=== PATIENT | male | born 1975 | race Caucasian/White ===

== ENCOUNTER 2017-02-03 06:50 | Inpatient (IN) | payer OTHER ==
--- NOTE | ~2017-02-03 | HP ---
Unit #: [id number] #: [id number] Patient: EDMUND KAYE [id number] [address] [place], [place] [address] [id number] MR#: [id number] NAME: EDMUND KAYE ROOM: [facility] Age: 41 Sex: M Admission Date: 02/03/2017 : 1975 Attending Physician: Mary Frederick M.D. Primary Care Physician: No Primary Care Physician HISTORY AND PHYSICAL CHIEF COMPLAINT Nausea, vomiting and abdominal pain. HISTORY OF PRESENT ILLNESS The patient is a 41-year-old male with a past medical history of diabetes, depression and polysubstance abuse. He presented to the emergency department for evaluation of the above. The patient state that he has not been feeling well since yesterday. He reports abdominal pain and vomiting. The abdominal pain is in the upper abdomen. He describes it as "burning." It has been fairly constant in nature. It is exacerbated by eating. There are no alleviating factors. He denies any similar pain. He has also had vomiting. He states that he has had about five bouts of nonbloody emesis within the past 24 hours. He denies any diarrhea. No urinary symptoms. No fever. No cough or cold symptoms. He has had general weakness. In the emergency department, initial pulse was 126, blood pressure 121/83, oxygen saturation 100% on room air. Laboratory notable for glucose of 375, CO2 was 7, anion gap is 24, pH is 7.040. He was given 3 liters of normal saline in the emergency department, as well as 7 units of regular insulin and started on insulin drip. He also received 2 mg of morphine. He is being admitted to [facility] for evaluation and further treatment. PAST MEDICAL HISTORY 1. The patient denies any hospitalizations as an adult. 2. Diabetes diagnosed about five months ago. 3. Depression. PAST SURGICAL HISTORY None. SOCIAL HISTORY The patient lives with his . He denies tobacco use. He reports occasional alcohol use. He also reports occasional methamphetamine capsule use as well as cocaine. He denies IV drug use. He is currently unemployed. FAMILY HISTORY Notable for his mother having lung cancer. His dad has diabetes and heart problems. ALLERGIES Unit #: [id number] #: [id number] Patient: EDMUND KAYE No known drug allergies. CURRENT MEDICATIONS 1. Zoloft. 2. Glimepiride. 3. Janumet. 4. Invoking. Home medications will need to be reviewed and verified. REVIEW OF SYSTEMS A complete review of systems is negative except as indicated in the history of present illness. PHYSICAL EXAMINATION GENERAL: The patient is a male who is somewhat lethargic, but wakes to voice. VITALS: Temperature is 97.5, pulse 126, respiratory rate 21, blood pressure 121/83, oxygen saturation 100% on room air. HEENT: The head is atraumatic. Mucous membranes are dry. NECK: Supple. Trachea midline. LUNGS: Clear to auscultation bilaterally with no increased work of breathing. HEART: Regular rate and rhythm. ABDOMEN: Soft. He is mildly tender to palpitation throughout. Bowel sounds are present in all four quadrants. EXTREMITIES: Nontender with no pedal edema. NEUROLOGIC: The patient is awake. He is oriented times three. He follows commands. He is moving all extremities. PSYCHIATRIC: Mood and affect are normal. The patient is cooperative. SKIN: Skin of examined areas is warm and dry. DIAGNOSTIC STUDIES IMAGING: Chest x-ray shows no acute abnormality. LABORATORY: CBC notable for white blood cell count 18.9, hemoglobin 17, hematocrit 52.6. CMP notable for sodium 132 that corrects when glucose of 375 is accounted for. CO2 was 7. Anion gap 24. ALT 41, alkaline phosphatase 108, total bilirubin 2.4, amylase and lipase normal. Urinalysis notable for 2+ protein, greater than 1000 glucose, 3+ ketones, 1+ blood with 0-2 red blood cells. Arterial blood gas notable for pH 7.04, pCO2 15.3 on room air. Magnesium and phosphorus levels are 2 and 3.5 respectively. Beta hydroxybutyrate is 9.65. ASSESSMENT The patient is a 41-year-old male with 1. Diabetic ketoacidosis. The patient received 3 liters of normal saline as well as 7 units of regular insulin. He is currently on insulin drip. 2. Anion gap metabolic acidosis with an anion gap of 24. 3. Nausea and vomiting. 4. Leukocytosis without obvious source of infection. The patient is dehydrated. 5. Polysubstance abuse including methamphetamine and cocaine. PLAN 1. Admit to ICU. 2. Diabetic ketoacidosis protocol with insulin drip. Unit #: [id number] #: [id number] Patient: EDMUND KAYE 3. Blood cultures times two. 4. P.r.n. Zofran. 5. P.r.n. Toradol. 6. Urine tox screen. 7. steel manager, social work consult regarding polysubstance abuse. 8. SCDs for DVT prophylaxis. 9. Protonix for GI prophylaxis since the patient will be in the ICU. 10. Repeat labs as per diabetic ketoacidosis protocol and in the morning, including magnesium and phosphorus. 11. Additional workup and consultants based on the above. Thirty-one minutes critical care time spent in the care of this patient (11:15 to 11:46). Dictated by Eusebia Penaloza/ronnell TD: 02/03/2017 11:56 JOB #: [id number] HISTORY AND PHYSICAL Page 1 of 1 X Mary Frederick MD X HISTORY AND PHYSICAL
--- NOTE | ~2017-02-03 | A ---
[facility] DATE: 02/04/17 Patient: EDMUND KAYE Physician: MARIO Address: [address] [place] [address] Room/Bed: [address], Zip: [place] [address] Admit Date: 02/03/17 Date of : [birth year] Height: 5 10 Weight: 160 73 NUTRITIONAL ASSESSMENT: REASON: DKA DX 41 yo male admitted for n/v, abdominal pain, DKA PMH: Polysubstance and IV drug abuse, DM, depression Anthropometrics: Ht: 5'10" Wt: 73 kg BMI: 23.1 Labs: Na+ 133 K+ 3.1 Gluc 196 Ca++ 8.1 Phos 1.8 Accuchecks 129-341 HgbA1C 16.3 Meds: Fish oil, protonix, novolog, MgSO4, KCl, zofran I/O & Bowel function: 3249/1245, last BM 01/31 Skin Integrity: no breakdown or edema noted Diet: Consistent carbohydrate Assessment: Chart reviewed, events noted. 41 yo male admitted for n/v and abdominal pain, found to be in DKA. Pt has a h/o polysubstance abuse and DM. Insulin drip has been discontinued, and the is ordered a consistent carbohydrate diet. RN reports that the pt consumed 100% of his breakfast and asked for more food. RD spoke with the pt at bedside. Pt reports having a great appetite, and not follow a specific diet at home. Per note in shift assessment, the pt reportedly did not eat for three days GRAIN OILSEED OR PASTURE GROWER. RD provided basic DM diet education, encouraging compliance. Pt was somewhat interactive in the education; however, he did not demonstrate motivation to comply with instructed diet. RD provided printed materials and encouraged pt to contact RD with any questions. Dx: Impaired glycemic control RT poor compliance AEB DKA Dx, accuchecks 129-341. Intervention: 1. Consistent carbohydrate diet 2. RD provided diet education Monitoring, Evaluation and Goals: 1. Improve labs; glucose, electrolytes 2. GI; promote regular BMs Recommendations: 1. Pt to follow a consistent carbohydrate diet as instructed by RD. Pt would benefit from seeing an outpatient RD, or attending free classes at his local health department for [facility] DATE: 06/07/17 Patient: EDMUND KAYE Physician: MARIO Address: [address] [place] [address] Room/Bed: [address], Zip: [place] [address] Admit Date: 02/03/17 Date of : [birth year] Height: 5 10 Weight: 160 73 follow up/ accountability. 2. Optimize the pt's bowel regimen noting last BM 01/31. 3. Optimize the pt's insulin regimen and provide education prior to discharge. 4. Contact RD if pt desires additional diet education. Pt is at mild nutritional risk. RD will follow hospital course per protocol. Respectfully, REED MARTINEZ RD, LD [facility] cc: client file
--- NOTE | ~2017-02-03 | DS ---
Unit #: [id number] #: [id number] Patient: EDMUND KAYE [id number] [address] [place], [place] [address] [id number] I MR#: [id number] NAME: EDMUND KAYE ROOM: 219 Age: 41 Sex: M Admission Date: 02/03/2017 : 1975 Discharge Date: 02/05/2017 Attending Physician: oJrge Olivo M.D. Primary Care Physician: No Primary Care Physician DISCHARGE SUMMARY REASON FOR ADMISSION Nausea, vomiting, and abdominal pain. HISTORY OF PRESENT ILLNESS/HOSPITAL COURSE Patient is a 41-year-old male, underlying history of diabetes, depression, polysubstance abuse, who states that he only snorts and/or takes pills by mouth and does not use IV drugs, who presented secondary to nausea, vomiting as well as abdominal pain. His initial blood glucose was 375, CO2 was 70, anion gap was 24, and pH was 7.04. He was subsequently placed on DKA protocol, and transferred to the ICU for ongoing management. Initial urine tox screen was positive for amphetamines. Through ICU course and while in DK-protocol, anion gap was closed. Blood cultures came back negative this morning with the exception of decreased potassium of 2.7. His electrolytes are now normal. Gap is closed as mentioned above. His blood sugars are more stable. Previously, it was noted that he was only on oral medications for his diabetes with questionable compliance at best, but noted that his hemoglobin A1C this hospital admission was 16.3, and therefore, unlikely, that he was taking any of his medications at home. At time of discharge, he has been counselled extensively on diabetes, long-term and detrimental side effects. He will be discharged on both Levemir as well as NovoLog t.i.d. with meals modifications as listed below, will also have diabetic teaching prior to discharge. I have also asked [facility] to see him prior to discharge in regards to his drug-related issues. He adamantly denies any IV drugs, but he has very little insight into abusing other substances and in consideration of his poorly controlled diabetes at this point in time, his prognosis is poor, and this has been reinforced with patient. He states that he will follow up with his primary care physician. He will try to get his sugars better and he will seek help in regards to his drug/substance addiction problems. FINAL DISCHARGE DIAGNOSES 1. Diabetic ketoacidosis, now resolved. 2. Poorly controlled insulin-dependent diabetes. 3. Intractable nausea and vomiting, now resolved, likely secondary to diabetic ketoacidosis. 4. Polysubstance abuse. 5. Chronic neuropathy likely secondary to poorly controlled diabetes. Unit #: [id number] #: [id number] Patient: EDMUND KAYE 6. Depression. 7. Anxiety. FINAL DISCHARGE MEDICATIONS 1. Neurontin 600 mg p.o. q.8. 2. Zoloft 50 mg p.o. q.h.s. 3. NovoLog 5 units t.i.d. with meals. 4. Levemir flex-pen 20 units subcu q.a.m. 5. Metformin 500 mg p.o. b.i.d. 6. 20 mEq of K-Dur p.o. b.i.d. x5 days. DISCHARGE CONDITION Stable. DISCHARGE DISPOSITION Home. LONG-TERM PROGNOSIS Poor, as patient has poor insight into his disease process. Dictated by... Jorge Olivo M.D. VAISHALI/eduard TD: 02/05/2017 23:09 JOB #: [id number] DISCHARGE SUMMARY Page 1 of 1 X Jorge Olivo MD X DISCHARGE SUMMARY
--- NOTE | ~2017-02-03 | EKG ---
PATIENT: EDMUND KAYE UNIT #: [id number] Ventricular Rate: 104 BPM Atrial Rate: 104 BPM P-R Interval: 140 ms QRS Duration: 84 ms Q-T Interval: 384 ms QTC Calculation(Bezet): 504 ms P [place]: 70 degrees Calculated R [place]: 98 degrees Calculated T [place]: -2 degrees Diagnosis Line: Sinus tachycardia Diagnosis Line: Rightward axis Diagnosis Line: Abnormal QRS-T angle, consider primary T wave Diagnosis Line: abnormality Diagnosis Line: Abnormal ECG Diagnosis Line: No previous ECGs available Diagnosis Line: Confirmed by ABDIRIZAK HEMPHILL MD ([id number]) on Diagnosis Line: 02/03/2017 10:16:46 PM INTERPRETING MD: CATY
--- NOTE | ~2017-02-03 | FU ---
[facility] DATE: 02/05/17 Patient: EDMUND KAYE Physician: MARIO Address: [address] [place] [address] Room/Bed: [address] [place] [address], Zip: [place] [address] Admit Date: 02/03/17 Date of : 75 Height: 5 10 Weight: 160 73 NUTRITION MONITORING/FOLLOW-UP: Reason: CONSULT RE: DIET EDUCATION PT HAD NO DIET QUESTIONS/CONCERNS AT THIS TIME. PT HAD QUESTIONS REGARDING INSULIN REGIMEN, RD ADVISED PT TO COMMUNICATE W/MD AND RN. RD ASSESSED/EDUCATED PT ON 02/04/17. RD TO REMAIN AVAILABLE UPON REQUEST. PT TO D/C HOME TODAY. Respectfully, Surinder Pugh, DELL, LD [facility] cc: client file
--- NOTE | ~2017-02-03 | CR72 ---
[facility] A Service of [facility] & [facility] RADIOLOGY TEXT RESULTS PATIENT: EDMUND KAYE LOCATION: [facility]- : [birth year] UNIT #: [id number] AGE: [address]: Mary Frederick MD SEX: M ORDER DR: [id number] [facility] [address] [facility]. [place], [place] [address] [id number] MR#: [id number] Acc #: [id number] NAME: EDMUND KAYE : 1975 SEX: M STUDY DATE/TIME: 02/03/2017 09:15 UNIT: CEDOF ROOM: 54541 STUDY DESCRIPTION: CR Chest Single View Portable Attending Physician: Mary Frederick M.D. Ordering Physician: Joey Schmidt M.D. Primary Care Physician: Primary Care Physician No MEDICAL IMAGING REPORT This report is preliminary unless electronic signature is present EXAM Chest portable 02/03/2017 0915 hours CLINICAL HISTORY Shortness of air with nausea and vomiting since 05:00 p.m. yesterday. History of diabetes. COMPARISON None. FINDINGS Single portable upright view demonstrates normal cardiac, mediastinal and hilar contours. The lungs are clear. There is no effusion or pneumothorax. IMPRESSION Normal upright portable chest film. Dictated by... Cathy Lazaro M.D. THIS IS AN ELECTRONICALLY VERIFIED REPORT Cathy Lazaro M.D. at 02/03/2017 2:31 PM SELWYN/evelyn TD: 02/03/2017 10:03 JOB #: [id number] MEDICAL IMAGING REPORT Page 1 of 1 COPY
[2017-02-03 07:44] LABS: BASOPHIL# 0.1 X10e3 (0-0.3); BASOPHIL% 0.4 % (0-2.5); DIFF IND YES; EOSINOPHIL# 0.1 X10e3 (0-0.7); EOSINOPHIL% 0.3 % (0.0-7.0); HEMATOCRIT 52.6 % (38.0-50.0); HEMOGLOBIN 17.3 gm/dL (13.0-16.0); LYMPHOCYTE% 10.5 % (17.0-45.0); MEAN CORPUSCULAR HEMOGLOBIN 28.4 PG (28-34); MEAN PLATELET VOLUME 10.2 FL (6.5-11.5); MONOCYTE# 1.2 X10e3 (0-1.0); MONOCYTE% 6.3 % (3.0-12.0); NEUTROPHIL# 15.6 X10e3 (1.5-7.1); NEUTROPHIL% 82.5 % (40-75); PLATELET COUNT 180 X10e3 (140-420); RED BLOOD COUNT 6.11 X10e (3.90-5.60); RED CELL DISTRIBUTION WIDTH 14.7 % (11.0-15.5); WHITE BLOOD COUNT 18.9 X10e3 (4.0-10.5)
[2017-02-03 07:52] LABS: URINE SOURCE CLEAN CATCH
[2017-02-03 08:02] LABS: PLATELET ESTIMATE NORMAL (NORMAL)
[2017-02-03 08:10] LABS: URINE APPEARANCE CLEAR; URINE BILIRUBIN NEG (NEG); URINE BLOOD 1+ (NEG); URINE COLOR YELLOW; URINE GLUCOSE >1000 MG/DL (NEG); URINE KETONE 3+ (NEG); URINE LEUKOCYTE ESTERASE NEG (NEG); URINE NITRATE NEG (NEG); URINE PROTEIN 2+ (NEG); URINE SPECIFIC GRAVITY 1.034 (1.003-1.035); URINE UROBILINOGEN 0.2 MG/DL (NEG)
[2017-02-03 08:12] LABS: ALBUMIN SERUM 4.7 g/dL (3.5-5.0); BILIRUBIN, DIRECT 0.2 mg/dL (0.0-0.2); BILIRUBIN,INDIRECT 2.2 mg/dL (0.0-0.9); BILIRUBIN,TOTAL 2.4 mg/dL (0.2-2.0); BUN/CREATININE RATIO 13.33; CALCIUM SERUM 8.5 mg/dL (8.4-10.2); CREATININE SERUM 1.2 mg/dL (0.6-1.4); GLOM FILT RATE Estimated 74.7 mL/min (>60); POTASSIUM 4.4 mmol/L (3.5-5.1); PROTEIN TOTAL SERUM 7.7 g/dL (6.0-8.3)
[2017-02-03 08:13] LABS: URBCS1 AUWI 0-2 /[HPF] (0-2); URINE BACTERIA AUWI NEG (NEGATIVE); URINE SQUAMOUS EPITHELIAL CELL NONE SEEN /[HPF]; UWBCS1 AUWI 0-2 (0-5)
[2017-02-03 08:42] LABS: CULTURE INDICATED? NO
[2017-02-03 08:45] LABS: URINE MUCUS PRESENT
[2017-02-03 09:14] LABS: ARTERIAL BLOOD GAS ALLEN TEST N; ARTERIAL BLOOD GAS ART SITE RIGHT RADIAL; ARTERIAL BLOOD GAS CARBOXY HB 0.9 %sat (0.0-9.0); ARTERIAL BLOOD GAS HCO3 4.2 mmol/L; ARTERIAL BLOOD GAS PCO2 15.3 mmHg (35.0-45.0); ARTERIAL DRAW? YES
[2017-02-03 09:58] LABS: PHOSPHOROUS 3.5 mg/dL (2.5-4.6)
[2017-02-03 12:44] LABS: AMPHETAMINE POS (NEG); BARBITURATES NEG (NEG); BENZODIAZEPINES NEG (NEG); COCAINE NEG (NEG); MARIJUANA NEG (NEG); OPIATES NEG (NEG); TRICYCLIC ANTIDEPRESSANTS NEG (NEG); U METHADONE NEG (NEG)
[2017-02-03 13:55] LABS: BUN/CREATININE RATIO 14.44; CALCIUM SERUM 7.9 mg/dL (8.4-10.2); CREATININE SERUM 0.9 mg/dL (0.6-1.4); GLOM FILT RATE Estimated 105.7 mL/min (>60); POTASSIUM 3.6 mmol/L (3.5-5.1)
[2017-02-03 15:57] LABS: BUN/CREATININE RATIO 14.44; CALCIUM SERUM 8.2 mg/dL (8.4-10.2); CREATININE SERUM 0.9 mg/dL (0.6-1.4); GLOM FILT RATE Estimated 105.7 mL/min (>60); POTASSIUM 3.8 mmol/L (3.5-5.1)
[2017-02-03 19:37] LABS: BUN/CREATININE RATIO 21.66; CALCIUM SERUM 8.2 mg/dL (8.4-10.2); CREATININE SERUM 0.6 mg/dL (0.6-1.4); GLOM FILT RATE Estimated 124.9 mL/min (>60)
[2017-02-03 19:39] LABS: POTASSIUM 3.1 mmol/L (3.5-5.1)
[2017-02-03 21:14] LABS: BUN/CREATININE RATIO 21.66; CALCIUM SERUM 7.8 mg/dL (8.4-10.2); CREATININE SERUM 0.6 mg/dL (0.6-1.4); GLOM FILT RATE Estimated 124.9 mL/min (>60); POTASSIUM 3.1 mmol/L (3.5-5.1)
[2017-02-04 03:12] LABS: BASOPHIL# 0.1 X10e3 (0-0.3); BASOPHIL% 0.5 % (0-2.5); EOSINOPHIL# 0.1 X10e3 (0-0.7); EOSINOPHIL% 1.3 % (0.0-7.0); HEMATOCRIT 44.3 % (38.0-50.0); LYMPHOCYTE# 2.5 X10e3 (1.0-3.5); LYMPHOCYTE% 23.6 % (17.0-45.0); MEAN CELL VOLUME 84.9 FL (83-96); MEAN CORPUSCULAR HEMOGLOBIN 28.1 PG (28-34); MEAN CORPUSCULAR HGB CONC 33.2 g/dL (30-36); MEAN PLATELET VOLUME 9.7 FL (6.5-11.5); NEUTROPHIL# 6.9 X10e3 (1.5-7.1); NEUTROPHIL% 65.6 % (40-75); PLATELET COUNT 104 X10e3 (140-420); RED BLOOD COUNT 5.22 X10e (3.90-5.60); RED CELL DISTRIBUTION WIDTH 14.5 % (11.0-15.5); WHITE BLOOD COUNT 10.6 X10e3 (4.0-10.5)
[2017-02-04 03:42] LABS: DIFF IND NO; HEMOGLOBIN 14.7 gm/dL (13.0-16.0)
[2017-02-04 03:57] LABS: ALBUMIN SERUM 3.7 g/dL (3.5-5.0); BILIRUBIN,TOTAL 1.6 mg/dL (0.2-2.0); BUN/CREATININE RATIO 23.33; CALCIUM SERUM 8.2 mg/dL (8.4-10.2); CREATININE SERUM 0.6 mg/dL (0.6-1.4); GLOM FILT RATE Estimated 124.9 mL/min (>60); MAGNESIUM 1.8 mg/dL (1.6-3.0); POTASSIUM 3.1 mmol/L (3.5-5.1); PROTEIN TOTAL SERUM 5.7 g/dL (6.0-8.3)
[2017-02-04 08:55] LABS: BUN/CREATININE RATIO 21.66; CALCIUM SERUM 8.1 mg/dL (8.4-10.2); CREATININE SERUM 0.6 mg/dL (0.6-1.4); GLOM FILT RATE Estimated 124.9 mL/min (>60); PHOSPHOROUS 1.8 mg/dL (2.5-4.6); POTASSIUM 3.1 mmol/L (3.5-5.1)
[2017-02-04] MEDS ORDERED: NEURONTIN600 MG PO (10:10)
[2017-02-04] MEDS ORDERED: DULOXETINE HCL60 MG PO (10:11)
[2017-02-04] MEDS ORDERED: AMITRYPTYLINE PO (10:11)
[2017-02-04] MEDS ORDERED: INVOKANA300 MG PO (10:12)
[2017-02-04] MEDS ORDERED: GLIMEPIRIDE2 MG PO (10:12)
[2017-02-04] MEDS ORDERED: JANUMET XR 1001 EACH PO (10:14)
[2017-02-04] MEDS ORDERED: OMEGA 3 1,0001 EACH PO (10:14)
[2017-02-04] MEDS ORDERED: ZOLOFT50 MG PO (10:15)
[2017-02-04 16:32] LABS: CALCIUM SERUM 7.9 mg/dL (8.4-10.2); CREATININE SERUM 0.8 mg/dL (0.6-1.4); POTASSIUM 3.6 mmol/L (3.5-5.1)
[2017-02-05 06:04] LABS: CALCIUM SERUM 7.9 mg/dL (8.4-10.2); CREATININE SERUM 0.6 mg/dL (0.6-1.4); GLOM FILT RATE Estimated 124.9 mL/min (>60)
[2017-02-05 06:08] LABS: POTASSIUM 2.7 mmol/L (3.5-5.1)
[2017-02-05 06:57] LABS: BASOPHIL# 0.1 X10e3 (0-0.3); BASOPHIL% 1.1 % (0-2.5); EOSINOPHIL# 0.1 X10e3 (0-0.7); EOSINOPHIL% 1.1 % (0.0-7.0); HEMATOCRIT 39.1 % (38.0-50.0); HEMOGLOBIN 13.2 gm/dL (13.0-16.0); LYMPHOCYTE# 1.7 X10e3 (1.0-3.5); LYMPHOCYTE% 31.6 % (17.0-45.0); MEAN CELL VOLUME 83.4 FL (83-96); MEAN CORPUSCULAR HEMOGLOBIN 28.1 PG (28-34); MEAN CORPUSCULAR HGB CONC 33.7 g/dL (30-36); MEAN PLATELET VOLUME 9.4 FL (6.5-11.5); MONOCYTE# 0.5 X10e3 (0-1.0); MONOCYTE% 9.7 % (3.0-12.0); NEUTROPHIL% 56.5 % (40-75); RED BLOOD COUNT 4.69 X10e (3.90-5.60); WHITE BLOOD COUNT 5.4 X10e3 (4.0-10.5)
[2017-02-05 07:55] LABS: DIFF IND YES; PLATELET COUNT 81 X10e3 (140-420)
[2017-02-05 07:58] LABS: ANISOCYTOSIS SL; PLATELET ESTIMATE DECREASED (NORMAL); RBC NORMAL YES
[2017-02-05] MEDS ORDERED: METFORMIN PO (17:41)
[2017-02-05] MEDS ORDERED: K-DUR20 ME1 PO (17:41)
[2017-02-05] MEDS ORDERED: LEVEMIR FL100 UNIT/1 SUBQ (17:42)
[2017-02-05] MEDS ORDERED: NOVOLOG FL100 UNIT/1 SUBQ (17:43)
== END 2017-02-05 18:07 | disposition home or self-care (01) | DRG 639 ==
LOC: CED 06:50 → C2A 08:55 → CEDOF 08:55 → CED 09:19 → CEDOF 09:19 → CICCU2 11:02 → CEDOF 11:02 → CICCU2 02-04 07:33 → C2A 02-04 15:06
PROVIDERS: Emergency Medicine; Family Medicine; Nurse Practitioner
DX: E13.10 Other specified diabetes mellitus with ketoacidosis without coma (principal); F32.9 Major depressive disorder, single episode, unspecified; R11.2 Nausea with vomiting, unspecified; E11.40 Type 2 diabetes mellitus with diabetic neuropathy, unspecified; F41.9 Anxiety disorder, unspecified; Z83.3 Family history of diabetes mellitus; Z82.3 Family history of stroke; Z82.49 Family history of ischemic heart disease and other diseases of the circulatory system; F15.10 Other stimulant abuse, uncomplicated; F14.10 Cocaine abuse, uncomplicated; E86.0 Dehydration
CPT/HCPCS: 36415; 36600; 71010; 80048; 80053; 80076; 80307; 81003; 82010; 82150; 82803; 82947; 83036; 83690; 83735; 84100; 84132; 85025; 87040; 93005; 96361; 96374; 96375; 99285; C9113; J1815; J1885; J2270; J2405; J3475